=== PATIENT | male | born 1990 | race Two or more races ===

== ENCOUNTER 2016-09-12 19:49 | Emergency (ER) | payer SELFPAY ==
[~2016-09-12] VITALS: Ht 182.9 cm; Wt 129.3 kg
[2016-09-12 20:46] LABS: Urine Bilirubin Negative (Negative); Urine Blood Negative /uL (Negative); Urine Color Yellow (Yellow); Urine Glucose Normal (Normal); Urine Ketone Negative (Negative); Urine Mucus FEW (None Seen); Urine Nitrite Negative (Negative); Urine RBC 1 /hpf (0 - 3); Urine Squamous Epithelial Cell FEW /hpf (<5); Urine Urobilinogen Normal (Negative); Urine pH 5.5 (5.0-8.0)
[2016-09-12 23:18] LABS: Basophils # (auto) 0 uL; Basophils % (auto) 0.1 % (0.0-2.0); Eosinophils # (auto) 0.2 uL; Eosinophils % (auto) 1.8 % (0.0-7.0); Hematocrit 47.5 % (41.0-53.0); Hemoglobin 15.8 g/dL (13.5-17.5); Lymphocytes # (auto) 1.5 uL; Lymphocytes % (auto) 12.1 % (10.0-50.0); Mean Corpuscular Hemoglobin 29.8 pg (28.0-32.0); Mean Corpuscular Hgb Conc. 33.2 g/dL (32.0-36.0); Mean Corpuscular Volume 89.7 fL (80.0-100.0); Mean Platelet Volume 8.5 fL (7.4-10.4); Monocytes # (auto) 0.7 uL; Monocytes % (auto) 5.6 % (0.0-12.0); Neutrophils # (auto) 10.2 uL; Neutrophils % (auto) 80.4 % (37.0-80.0); Platelet Count (auto) 294 10^3/uL (140-450); Red Cell Distribution Width 12.5 % (11.6-16.0); White Blood Cell 12.6 10^3/uL (4.4-10.8)
[2016-09-13 00:35] LABS: BUN/Creatinine Ratio 13.4; Potassium 3.9 mmol/L (3.5-5.1)
[2016-09-13 00:36] LABS: Albumin 4.2 g/dL (3.4-5.0); Bilirubin, Total 1.2 mg/dL (0.2-1.0); Calcium 9.2 mg/dL (8.5-10.1); Total Protein 8.5 g/dL (6.4-8.2)
[2016-09-13] MEDS ORDERED: ONDANSETRON ODT 4 MG TAB PO ONE (02:50)
[2016-09-13] MEDS ORDERED: MECLIZINE HCL 25 MG TAB ONE (02:50)
[2016-09-13 04:12] VITALS: BP 134/72
[2016-09-13 04:51] LABS: Basophils # (auto) 0 uL; Basophils % (auto) 0.2 % (0.0-2.0); Eosinophils # (auto) 0.3 uL; Eosinophils % (auto) 2.9 % (0.0-7.0); Hematocrit 46.8 % (41.0-53.0); Hemoglobin 15.7 g/dL (13.5-17.5); Lymphocytes # (auto) 1.9 uL; Lymphocytes % (auto) 16.3 % (10.0-50.0); Mean Corpuscular Hemoglobin 29.9 pg (28.0-32.0); Mean Corpuscular Hgb Conc. 33.5 g/dL (32.0-36.0); Mean Platelet Volume 8.7 fL (7.4-10.4); Monocytes % (auto) 8.4 % (0.0-12.0); Neutrophils # (auto) 8.2 uL; Neutrophils % (auto) 72.2 % (37.0-80.0); Platelet Count (auto) 274 10^3/uL (140-450); Red Cell Distribution Width 11.2 % (11.6-16.0); White Blood Cell 11.4 10^3/uL (4.4-10.8)
[2016-09-13 05:31] LABS: Potassium 3.8 mmol/L (3.5-5.1)
[2016-09-13 05:32] LABS: BUN/Creatinine Ratio 14.3; Bilirubin, Total 1.3 mg/dL (0.2-1.0); Calcium 8.9 mg/dL (8.5-10.1); Total Protein 8.1 g/dL (6.4-8.2)
== END 2016-09-13 04:32 | disposition home or self-care (01) ==
LOC: ER 19:58
DX: R42 Dizziness and giddiness (principal); R51 Headache; R11.2 Nausea with vomiting, unspecified; F12.10 Cannabis abuse, uncomplicated
CPT/HCPCS: 36415; 70450; 80053; 81001; 82150; 83690; 85025; 99285; J8597; Q0162